=== PATIENT | male | born 1960 | race African-American/Black ===

== ENCOUNTER 2019-08-10 12:29 | Inpatient (IN) | payer MEDICAID ==
[~2019-08-10] VITALS: Ht 165.1 cm; Wt 67.1 kg
[2019-08-10 14:38] LABS: EOSINOPHILS % 6.1 % (0.0-5.0); HEMOGLOBIN. 12.6 g/dL (14.0-18.0); LYMPHOCYTES % 26.3 % (20.0-50.0); MEAN CORPUSCULAR HEMOGLOBIN 31.4 pg (28.0-32.0); MEAN CORPUSCULAR VOLUME 94.7 fL (80.0-94.0); MEAN PLATELET VOLUME 8.1 fl (7.4-10.4); MONOCYTES % 5.2 % (2.0-8.0); NEUTROPHILS % 61.4 % (40.0-76.0); PLATELET 238 x1000/uL (130-400); RED BLOOD CELL COUNT 4.02 mill/uL (4.7-6.1); RED CELL DISTRIBUTION WIDTH 14.6 % (11.6-14.6)
[2019-08-10 14:46] LABS: CHLORIDE 102 mEq/L (98-107)
[2019-08-10] MEDS ORDERED: ONDANSETRON HCL 4MG/2ML INJ IV PRN (18:45)
[2019-08-10] MEDS ORDERED: MORPHINE SULFATE 2 MG/ML CPJ (NOT FOR IM USE) IV PRN (18:45)
[2019-08-10] MEDS ORDERED: GUAIFENESIN 200MG/10ML SUGAR FREE UDC PO PRN (18:45)
[2019-08-10] MEDS ORDERED: DOCUSATE SODIUM 100MG CAPSULE PO PRN (18:45)
[2019-08-10] MEDS ORDERED: IPRATROPIUM/ALBUTEROL 0.5-3(2.5)MG/3ML NEB HHN PRN (18:45)
[2019-08-10] MEDS ORDERED: MAGNESIUM/ALUMINUM HYDROXIDE/SIMETHICONE 30ML UDC PO PRN (18:45)
[2019-08-10] MEDS ORDERED: CLONIDINE 0.1MG TABLET PO PRN (18:45)
[2019-08-10] MEDS ORDERED: LORAZEPAM 2MG/ML CPJ IV PRN (18:45)
[2019-08-10] MEDS ORDERED: ACETAMINOPHEN 325MG TABLET PO PRN (18:45)
[2019-08-10] MEDS ORDERED: HYDROCODONE/ACETAMINOPHEN 10/325MG TABLET PO PRN (18:45)
[2019-08-10] MEDS ORDERED: HYDRALAZINE 20MG/ML VIAL IV PRN (18:45)
[2019-08-10] MEDS ORDERED: DIPHENHYDRAMINE 50MG/ML VIAL IV PRN (18:45)
[2019-08-10 22:46] VITALS: BP 144/100
[2019-08-10 22:51] VITALS: BP 144/100
[2019-08-10] MEDS ORDERED: ISOS30TA6 PO (23:15)
[2019-08-10] MEDS ORDERED: CARV12.545 PO (23:15)
[2019-08-10] MEDS ORDERED: SEVE2.4P3 PO (23:15)
[2019-08-10] MEDS ORDERED: LISI2.5T47 PO (23:15)
[2019-08-10] MEDS ORDERED: HYDR-4133 PO (23:15)
[2019-08-11 00:02] LABS: CREATINE KINASE 46 IU/L (39-308)
[2019-08-11 00:04] LABS: CREATINE KINASE MB FRACTION < 1.0 ng/mL (0.5-3.6)
[2019-08-11 04:00] VITALS: BP 138/87
[2019-08-11] MEDS ORDERED: SODIUM CHLORIDE 0.9% INJ 3ML FLUSH IVF SCH (06:00)
[2019-08-11 07:28] LABS: BASOPHILS % 0.9 % (0.0-2.0); EOSINOPHILS % 6.6 % (0.0-5.0); HEMATOCRIT. 33.7 % (42.0-52.0); HEMOGLOBIN. 11.2 g/dL (14.0-18.0); LYMPHOCYTES % 25.2 % (20.0-50.0); MEAN CORPUSCULAR HEMOGLOBIN 31.6 pg (28.0-32.0); MEAN CORPUSCULAR VOLUME 94.5 fL (80.0-94.0); MONOCYTES % 7.9 % (2.0-8.0); NEUTROPHILS % 59.4 % (40.0-76.0); PLATELET 212 x1000/uL (130-400); RED BLOOD CELL COUNT 3.56 mill/uL (4.7-6.1); RED CELL DISTRIBUTION WIDTH 14.7 % (11.6-14.6)
[2019-08-11 07:42] LABS: CHLORIDE 102 mEq/L (98-107)
[2019-08-11 07:55] LABS: CREATINE KINASE 49 IU/L (39-308)
[2019-08-11 07:58] LABS: CREATINE KINASE MB FRACTION < 1.0 ng/mL (0.5-3.6)
[2019-08-11 08:00] VITALS: BP 152/119
[2019-08-11] MEDS ORDERED: ENOXAPARIN 30MG/0.3ML SYR SUBCUT SCH (09:00)
== END 2019-08-11 10:26 | disposition left against medical advice (07) | DRG 470 ==
LOC: ER 12:50 → 7WST 18:09 → EDBEDREQ 18:25 → EDBEDREQTM 18:25 → EDBEDREQSVC 20:59 → EDBEDREQTM 20:59 → ENRESERV 21:36
PROVIDERS: ADMIT Internal Medicine; ATTEND Internal Medicine
DX: I13.11 Hypertensive heart and chronic kidney disease without heart failure, with stage 5 chronic kidney disease, or end stage renal disease (principal); E87.70 Fluid overload, unspecified; N18.6 End stage renal disease; I51.7 Cardiomegaly; Z91.19 Patient's noncompliance with other medical treatment and regimen; Z99.2 Dependence on renal dialysis; F17.210 Nicotine dependence, cigarettes, uncomplicated
CPT/HCPCS: 36415; 71045; 80053; 82550; 82553; 83880; 84484; 85025; 93005; 93970; 99285; J1650

== ENCOUNTER 2019-11-30 19:33 | Inpatient (IN) | payer MEDICAID ==
[~2019-11-30] VITALS: Ht 175.3 cm; Wt 55.8 kg
[~2019-11-30 19:33] MED LIST: SEVE800T8 PO; TOPUD PO
[2019-11-30] MEDS ORDERED: ONDANSETRON HCL 4MG/2ML INJ IV ONE (21:30)
[2019-11-30 23:09] LABS: BASOPHILS % 1.8 % (0.0-2.0); HEMATOCRIT. 23.8 % (42.0-52.0); HEMOGLOBIN. 7.9 g/dL (14.0-18.0); LYMPHOCYTES % 12.3 % (20.0-50.0); MEAN CORPUSCULAR HEMOGLOBIN 29.1 pg (28.0-32.0); MEAN CORPUSCULAR VOLUME 87.7 fL (80.0-94.0); MEAN PLATELET VOLUME 7.7 fl (7.4-10.4); MONOCYTES % 11.7 % (2.0-8.0); NEUTROPHILS % 65.2 % (40.0-76.0); PLATELET 375 x1000/uL (130-400); RED BLOOD CELL COUNT 2.71 mill/uL (4.7-6.1); RED CELL DISTRIBUTION WIDTH 16.2 % (11.6-14.6)
[2019-11-30 23:15] LABS: CHLORIDE 102 mEq/L (98-107)
[2019-11-30 23:20] LABS: ETHANOL BLOOD < 10 mg/dL
[2019-11-30] MEDS ORDERED: CALCIUM CHLORIDE 1GM/10ML SYR IV ONE (23:30)
[2019-11-30] MEDS ORDERED: DEXTROSE 50% WATER 50ML SYRINGE IV ONE (23:30)
[2019-11-30] MEDS ORDERED: INSULIN REGULAR (HUMULIN R) 300UNITS/3ML IV ONE (23:30)
[2019-11-30] MEDS ORDERED: SODIUM POLYSTYRENE SULFONATE 15 G/60 ML BOT PO ONE (23:30)
[2019-11-30] MEDS ORDERED: ALBUTEROL (0.083%) 2.5MG/3ML NEB HHN ONE (23:30)
[2019-11-30] MEDS ORDERED: FUROSEMIDE 100MG/10ML VIAL IV STA (23:30)
[2019-12-01 01:35] LABS: CHLORIDE 105 mEq/L (98-107)
[2019-12-01] MEDS ORDERED: DEXTROSE 50% WATER 50ML SYRINGE IV ONE (02:30)
[2019-12-01 04:39] VITALS: BP 144/92
[2019-12-01 04:44] VITALS: BP 144/92
[2019-12-01 04:59] VITALS: BP 128/92
[2019-12-01] MEDS ORDERED: ONDANSETRON HCL 4MG/2ML INJ IV PRN (08:30)
[2019-12-01] MEDS ORDERED: CLONIDINE 0.1MG TABLET PO PRN (08:30)
[2019-12-01] MEDS ORDERED: DIPHENHYDRAMINE 50MG/ML VIAL IV PRN (08:30)
[2019-12-01 12:00] VITALS: BP 135/79
[2019-12-01] MEDS ORDERED: DEXTROSE 50% WATER 50ML SYRINGE IV PRN (12:15)
[2019-12-01] MEDS: BLOOD SUGAR DIAGNOSTIC STRIP TEST SCH ×3 (12:38→21:53)
[2019-12-01] MEDS: INSULIN LISPRO 100 UNITS/ML SUBCUT SCH ×3 (12:39→21:00)
[2019-12-01 16:00] VITALS: BP 130/89
[2019-12-01] MEDS: ACETAMINOPHEN 325MG TABLET PO PRN (16:57)
[2019-12-01 20:00] VITALS: BP 135/71
[2019-12-01] MEDS ORDERED: EPOETIN ALFA 10000UNITS/ML VIAL SUBCUT SCH (21:00)
[2019-12-02] VITALS: BP 138/85
[2019-12-02] MEDS: MORPHINE SULFATE 2 MG/ML CPJ (NOT FOR IM USE) IV PRN ×2 (03:22→09:30)
[2019-12-02] MEDS: ACETAMINOPHEN 325MG TABLET PO PRN (05:06)
[2019-12-02 08:00] VITALS: BP 189/104
[2019-12-02] MEDS: INSULIN LISPRO 100 UNITS/ML SUBCUT SCH ×4 (08:10→21:00)
[2019-12-02] MEDS: BLOOD SUGAR DIAGNOSTIC STRIP TEST SCH ×4 (08:13→22:58)
[2019-12-02 12:00] VITALS: BP 119/76
[2019-12-02 12:07] LABS: BASOPHILS % 0.8 % (0.0-2.0); EOSINOPHILS % 7.8 % (0.0-5.0); HEMATOCRIT. 24.5 % (42.0-52.0); HEMOGLOBIN. 8.2 g/dL (14.0-18.0); LYMPHOCYTES % 9.4 % (20.0-50.0); MEAN CORPUSCULAR HEMOGLOBIN 28.6 pg (28.0-32.0); MEAN CORPUSCULAR VOLUME 85.7 fL (80.0-94.0); MEAN PLATELET VOLUME 7.2 fl (7.4-10.4); MONOCYTES % 8.9 % (2.0-8.0); NEUTROPHILS % 73.1 % (40.0-76.0); PLATELET 379 x1000/uL (130-400); RED BLOOD CELL COUNT 2.86 mill/uL (4.7-6.1); RED CELL DISTRIBUTION WIDTH 15.5 % (11.6-14.6)
[2019-12-02 12:45] LABS: CHLORIDE 103 mEq/L (98-107)
[2019-12-02 12:59] LABS: LDL CHOLESTEROL 86 mg/dL (5-100)
[2019-12-02 13:01] LABS: HDL CHOLESTEROL 23 mg/dL (40-59)
[2019-12-02 16:00] VITALS: BP 122/76
[2019-12-02 20:00] VITALS: BP 112/81
[2019-12-03] VITALS: BP 122/73
[2019-12-03 04:00] VITALS: BP 116/79
[2019-12-03] MEDS: BLOOD SUGAR DIAGNOSTIC STRIP TEST SCH ×4 (05:19→21:15)
[2019-12-03] MEDS: INSULIN LISPRO 100 UNITS/ML SUBCUT SCH ×4 (05:19→21:00)
[2019-12-03 06:57] LABS: BASOPHILS % 1.4 % (0.0-2.0); EOSINOPHILS % 9.1 % (0.0-5.0); HEMATOCRIT. 24.3 % (42.0-52.0); HEMOGLOBIN. 8.1 g/dL (14.0-18.0); MEAN CORPUSCULAR HEMOGLOBIN 28.9 pg (28.0-32.0); MEAN CORPUSCULAR VOLUME 86.3 fL (80.0-94.0); MEAN PLATELET VOLUME 7.6 fl (7.4-10.4); MONOCYTES % 11.9 % (2.0-8.0); NEUTROPHILS % 61.6 % (40.0-76.0); PLATELET 393 x1000/uL (130-400); RED BLOOD CELL COUNT 2.81 mill/uL (4.7-6.1); RED CELL DISTRIBUTION WIDTH 15.8 % (11.6-14.6)
[2019-12-03 08:00] VITALS: BP 121/74
[2019-12-03 12:00] VITALS: BP 110/80
[2019-12-03 16:00] VITALS: BP 100/70
[2019-12-03] MEDS ORDERED: EPOETIN ALFA 10000UNITS/ML VIAL SUBCUT NR (18:00)
[2019-12-03 20:00] VITALS: BP 112/78
[2019-12-04] VITALS: BP 104/78
[2019-12-04] MEDS: MORPHINE SULFATE 2 MG/ML CPJ (NOT FOR IM USE) IV PRN (03:50)
[2019-12-04 04:00] VITALS: BP 115/72
[2019-12-04 08:02] VITALS: BP 116/85
[2019-12-04] MEDS: ACETAMINOPHEN 325MG TABLET PO PRN (10:49)
[2019-12-04 11:46] VITALS: BP 116/85
== END 2019-12-04 12:45 | disposition home or self-care (01) | DRG 425 ==
LOC: ER 19:33 → MICUSO 22:38 → 7WST 12-01 02:05 → 8WST 12-02 23:13
PROVIDERS: ADMIT Internal Medicine; ATTEND Internal Medicine
PROC: 5A1D70Z Performance of Urinary Filtration, Intermittent, Less than 6 Hours Per Day (ICD-10-PCS; principal; 2019-12-01)
PROC: 5A1D70Z Performance of Urinary Filtration, Intermittent, Less than 6 Hours Per Day (ICD-10-PCS; 2019-12-02)
DX: E87.5 Hyperkalemia (principal); I12.0 Hypertensive chronic kidney disease with stage 5 chronic kidney disease or end stage renal disease; N18.6 End stage renal disease; M31.6 Other giant cell arteritis; D63.1 Anemia in chronic kidney disease; Z20.828 Contact with and (suspected) exposure to other viral communicable diseases; E46 Unspecified protein-calorie malnutrition; Z68.1 Body mass index [BMI] 19.9 or less, adult; Z99.2 Dependence on renal dialysis; E43 Unspecified severe protein-calorie malnutrition; D72.810 Lymphocytopenia; Z91.15 Patient's noncompliance with renal dialysis
CPT/HCPCS: 36415; 71045; 80048; 80053; 80061; 80320; 82962; 83735; 84100; 84439; 84443; 84481; 85025; 87635; 93005; 96374; 99291; J0885; J1200; J1815; J1940; J2270; J2405; J3490; G0480

== ENCOUNTER 2019-12-12 18:14 | Inpatient (IN) | payer MEDICAID ==
[~2019-12-12] VITALS: Ht 167.6 cm; Wt 64.9 kg
[2019-12-12] MEDS ORDERED: CEFTRIAXONE 1 G PREMIX 50 ML IV ONE (19:30)
[2019-12-12 20:34] LABS: BASOPHILS % 1.2 % (0.0-2.0); EOSINOPHILS % 3.9 % (0.0-5.0); HEMATOCRIT. 27.1 % (42.0-52.0); HEMOGLOBIN. 8.7 g/dL (14.0-18.0); MEAN CORPUSCULAR HEMOGLOBIN 28.2 pg (28.0-32.0); MEAN CORPUSCULAR VOLUME 88.2 fL (80.0-94.0); MEAN PLATELET VOLUME 7.2 fl (7.4-10.4); MONOCYTES % 7.6 % (2.0-8.0); NEUTROPHILS % 75.3 % (40.0-76.0); PLATELET 446 x1000/uL (130-400); RED BLOOD CELL COUNT 3.07 mill/uL (4.7-6.1); RED CELL DISTRIBUTION WIDTH 15.3 % (11.6-14.6)
[2019-12-12 20:39] LABS: CHLORIDE 101 mEq/L (98-107)
[2019-12-12 20:42] LABS: INR 1.3
[2019-12-12] MEDS ORDERED: DEXTROSE 50% WATER 50ML SYRINGE IV ONE (20:45)
[2019-12-12] MEDS ORDERED: SODIUM BICARBONATE 8.4% 1 MEQ/ML 50ML SYR IV NR (21:00)
[2019-12-12] MEDS ORDERED: INSULIN REGULAR (HUMULIN R) 300UNITS/3ML IV NR (21:00)
[2019-12-12] MEDS ORDERED: DEXTROSE 50% WATER 50ML SYRINGE IV NR (21:00)
[2019-12-12] MEDS ORDERED: ALBUTEROL (0.083%) 2.5MG/3ML NEB HHN NR (21:00)
[2019-12-12 21:08] LABS: CLARITY URINE TURBID (CLEAR); COLOR URINE YELLOW (YELLOW); KETONES URINE NEGATIVE (NEGATIVE); LEUKOCYTE ESTERASE URINE 3+ (NEGATIVE); NITRITE URINE NEGATIVE (NEGATIVE); OCCULT BLOOD URINE 3+ (NEGATIVE); PROTEIN URINE 3+ (NEGATIVE); SPECIFIC GRAVITY URINE 1.009 (1.005-1.030); UROBILINOGEN URINE 0.2 E.U./dL (0.2-1.0)
[2019-12-13 01:00] VITALS: BP 111/73
[2019-12-13] MEDS ORDERED: MORPHINE SULFATE 2 MG/ML CPJ (NOT FOR IM USE) IV PRN (06:15)
[2019-12-13 07:27] LABS: BASOPHILS % 0.7 % (0.0-2.0); EOSINOPHILS % 2.3 % (0.0-5.0); HEMATOCRIT. 25.8 % (42.0-52.0); HEMOGLOBIN. 8.4 g/dL (14.0-18.0); LYMPHOCYTES % 7.8 % (20.0-50.0); MEAN CORPUSCULAR HEMOGLOBIN 28.2 pg (28.0-32.0); MEAN CORPUSCULAR VOLUME 86.9 fL (80.0-94.0); MEAN PLATELET VOLUME 7.6 fl (7.4-10.4); MONOCYTES % 7.5 % (2.0-8.0); NEUTROPHILS % 81.7 % (40.0-76.0); PLATELET 457 x1000/uL (130-400); RED BLOOD CELL COUNT 2.97 mill/uL (4.7-6.1)
[2019-12-13] MEDS ORDERED: SEVELAMER CARBONATE 800 MG TABLET PO SCH (07:40)
[2019-12-13 07:50] VITALS: BP 93/55
[2019-12-13] MEDS: PIPERACILLIN/TAZOBACTAM 2.25 G in DEXTROSE 5% WATER 50 ML IV SCH ×2 (08:48→22:06)
[2019-12-13] MEDS: FOLIC ACID/VITAMIN B COMP W-C TABLET PO SCH (08:48)
[2019-12-13] MEDS: FAMOTIDINE 20MG TABLET PO SCH (08:48)
[2019-12-13 11:56] VITALS: BP 100/60
[2019-12-13] MEDS ORDERED: ALBUMIN HUMAN 25GM/100ML (25%) IV NR (12:00)
[2019-12-13] MEDS ORDERED: SODIUM BICARBONATE 50 MEQ in DEXTROSE 5% WATER 1,000 ML IV SCH (12:00)
[2019-12-13 12:04] LABS: PHOSPHORUS 15.4 mg/dL (2.5-4.9)
[2019-12-13] MEDS: SEVELAMER CARBONATE 800 MG TABLET PO SCH ×2 (12:18→17:57)
[2019-12-13] MEDS: RISPERIDONE 0.5MG TABLET PO SCH ×2 (12:19→17:57)
[2019-12-13] MEDS: SODIUM BICARBONATE 50 MEQ in DEXT 5%/0.45% NACL 1000ML 1,000 ML IV SCH (15:05)
[2019-12-13] MEDS ORDERED: DEXTROSE 50% WATER 50ML SYRINGE IV PRN (17:15)
[2019-12-13 19:00] VITALS: BP 107/65
[2019-12-13] MEDS: HYDROCODONE/ACETAMINOPHEN 10/325MG TABLET PO PRN (19:08)
[2019-12-13 20:00] VITALS: BP 124/82
[2019-12-13] MEDS: BLOOD SUGAR DIAGNOSTIC STRIP TEST SCH ×2 (20:29→23:53)
[2019-12-13] MEDS ORDERED: MIDODRINE HCL 5MG TABLET PO SCH (21:00)
[2019-12-13] MEDS ORDERED: EPOETIN ALFA 10000UNITS/ML VIAL SUBCUT SCH (21:00)
[2019-12-13] MEDS ORDERED: ALTEPLASE 2MG/VIAL ITC NR ×2 (21:30)
[2019-12-13 23:50] VITALS: BP 115/78
[2019-12-14 04:00] VITALS: BP 117/74
[2019-12-14] MEDS: BLOOD SUGAR DIAGNOSTIC STRIP TEST SCH ×5 (04:11→19:57)
[2019-12-14] MEDS: HYDROCODONE/ACETAMINOPHEN 10/325MG TABLET PO PRN (04:30)
[2019-12-14] MEDS ORDERED: ALBUMIN HUMAN 25GM/100ML (25%) IV ONE (05:00)
[2019-12-14 07:46] LABS: HEMOGLOBIN. 7.2 g/dL (14.0-18.0); MEAN CORPUSCULAR HEMOGLOBIN 28.3 pg (28.0-32.0); MEAN CORPUSCULAR VOLUME 86.4 fL (80.0-94.0); MEAN PLATELET VOLUME 7.4 fl (7.4-10.4); PLATELET 348 x1000/uL (130-400); RED BLOOD CELL COUNT 2.54 mill/uL (4.7-6.1); RED CELL DISTRIBUTION WIDTH 15.2 % (11.6-14.6)
[2019-12-14 08:00] VITALS: BP 115/68
[2019-12-14] MEDS: FAMOTIDINE 20MG TABLET PO SCH (08:46)
[2019-12-14] MEDS: RISPERIDONE 0.5MG TABLET PO SCH ×2 (08:46→18:02)
[2019-12-14] MEDS: SEVELAMER CARBONATE 800 MG TABLET PO SCH ×3 (08:46→18:03)
[2019-12-14] MEDS: FOLIC ACID/VITAMIN B COMP W-C TABLET PO SCH (08:46)
[2019-12-14] MEDS: PIPERACILLIN/TAZOBACTAM 2.25 G in DEXTROSE 5% WATER 50 ML IV SCH ×2 (10:00→20:33)
[2019-12-14 12:00] VITALS: BP 124/74
[2019-12-14] MEDS ORDERED: HEPARIN 5000 UNITS/ML VIAL IV SCH (13:15)
[2019-12-14] MEDS: SODIUM BICARBONATE 50 MEQ in DEXT 5%/0.45% NACL 1000ML 1,000 ML IV SCH (15:15)
[2019-12-14 16:00] VITALS: BP 108/80
[2019-12-14] MEDS: FERROUS SULFATE 325MG TABLET PO SCH (18:02)
[2019-12-14 20:00] VITALS: BP 92/57
[2019-12-14 21:36] LABS: PLATELET ESTIMATE NORMAL
[2019-12-15] VITALS (11 sets, daily range): BP systolic 71–106; BP diastolic 8–63
[2019-12-15] MEDS: BLOOD SUGAR DIAGNOSTIC STRIP TEST SCH ×5 (04:00→15:25)
[2019-12-15 07:56] LABS: HEMATOCRIT. 22.2 % (42.0-52.0); HEMOGLOBIN. 7.3 g/dL (14.0-18.0); MEAN CORPUSCULAR HEMOGLOBIN 28.3 pg (28.0-32.0); MEAN CORPUSCULAR VOLUME 86.1 fL (80.0-94.0); MEAN PLATELET VOLUME 7.7 fl (7.4-10.4); PLATELET 299 x1000/uL (130-400); RED BLOOD CELL COUNT 2.58 mill/uL (4.7-6.1); RED CELL DISTRIBUTION WIDTH 15.3 % (11.6-14.6)
[2019-12-15] MEDS: RISPERIDONE 0.5MG TABLET PO SCH ×2 (08:22→17:00)
[2019-12-15] MEDS: FOLIC ACID/VITAMIN B COMP W-C TABLET PO SCH (08:23)
[2019-12-15] MEDS: FERROUS SULFATE 325MG TABLET PO SCH ×2 (08:23→17:17)
[2019-12-15] MEDS: FAMOTIDINE 20MG TABLET PO SCH (08:23)
[2019-12-15] MEDS: SEVELAMER CARBONATE 800 MG TABLET PO SCH ×3 (08:24→17:17)
[2019-12-15] MEDS: PIPERACILLIN/TAZOBACTAM 2.25 G in DEXTROSE 5% WATER 50 ML IV SCH (08:24)
[2019-12-15] MEDS ORDERED: ALLOPURINOL 100 MG TABLET PO SCH (09:00)
[2019-12-15] MEDS ORDERED: ALBUMIN HUMAN 25GM/100ML (25%) IV SCH (15:00)
[2019-12-15 17:55] LABS: PLATELET ESTIMATE NORMAL
[2019-12-15] MEDS ORDERED: EPOETIN ALFA 4000UNITS/ML VIAL SUBCUT SCH (21:00)
== END 2019-12-15 18:00 | disposition home or self-care (01) | DRG 424 ==
LOC: ER 18:14 → 8WST 22:59 → EDBEDREQ 23:14 → ENRESERV 23:44
PROVIDERS: ADMIT Internal Medicine; ATTEND Internal Medicine
PROC: 5A1D70Z Performance of Urinary Filtration, Intermittent, Less than 6 Hours Per Day (ICD-10-PCS; 2019-12-13)
PROC: 3E03317 Introduction of Other Thrombolytic into Peripheral Vein, Percutaneous Approach (ICD-10-PCS; 2019-12-13)
PROC: 5A1D70Z Performance of Urinary Filtration, Intermittent, Less than 6 Hours Per Day (ICD-10-PCS; principal; 2019-12-14)
PROC: 5A1D70Z Performance of Urinary Filtration, Intermittent, Less than 6 Hours Per Day (ICD-10-PCS; 2019-12-15)
PROC: 30233N1 Transfusion of Nonautologous Red Blood Cells into Peripheral Vein, Percutaneous Approach (ICD-10-PCS; 2019-12-15)
DX: E16.2 Hypoglycemia, unspecified (principal); E87.5 Hyperkalemia; E43 Unspecified severe protein-calorie malnutrition; N18.6 End stage renal disease; I12.0 Hypertensive chronic kidney disease with stage 5 chronic kidney disease or end stage renal disease; D63.1 Anemia in chronic kidney disease; E79.0 Hyperuricemia without signs of inflammatory arthritis and tophaceous disease; I95.9 Hypotension, unspecified; E83.39 Other disorders of phosphorus metabolism; R18.8 Other ascites; N39.0 Urinary tract infection, site not specified; N25.81 Secondary hyperparathyroidism of renal origin; K74.60 Unspecified cirrhosis of liver; E87.2 Acidosis; F17.210 Nicotine dependence, cigarettes, uncomplicated; F20.9 Schizophrenia, unspecified; L03.211 Cellulitis of face; Z91.15 Patient's noncompliance with renal dialysis; Z68.23 Body mass index [BMI] 23.0-23.9, adult; Z71.6 Tobacco abuse counseling; Z99.2 Dependence on renal dialysis
CPT/HCPCS: 36415; 70486; 71045; 80048; 80053; 81003; 82962; 83036; 83540; 83550; 83735; 83970; 84100; 84484; 84550; 85025; 86850; 86900; 86920; 93005; 94640; 99291; J0696; J0885; J1644; J1815; J2543; J2997; J3490; J7060; J7070; P9016; P9047

== ENCOUNTER 2019-12-19 14:28 | Inpatient (IN) | payer MEDICAID ==
[~2019-12-19] VITALS: Ht 167.6 cm; Wt 46.0 kg
[2019-12-19] MEDS ORDERED: MORPHINE SULFATE 4 MG/ML CPJ (NOT FOR IM USE) IV ONE (15:00)
[2019-12-19 15:30] LABS: BASOPHILS % 1.1 % (0.0-2.0); EOSINOPHILS % 7.1 % (0.0-5.0); HEMATOCRIT. 30.4 % (42.0-52.0); HEMOGLOBIN. 9.8 g/dL (14.0-18.0); LYMPHOCYTES % 8.8 % (20.0-50.0); MEAN CORPUSCULAR HEMOGLOBIN 28.6 pg (28.0-32.0); MEAN CORPUSCULAR VOLUME 88.1 fL (80.0-94.0); MEAN PLATELET VOLUME 7.4 fl (7.4-10.4); MONOCYTES % 6.7 % (2.0-8.0); NEUTROPHILS % 76.3 % (40.0-76.0); PLATELET 432 x1000/uL (130-400); RED BLOOD CELL COUNT 3.45 mill/uL (4.7-6.1); RED CELL DISTRIBUTION WIDTH 14.8 % (11.6-14.6)
[2019-12-19 15:35] LABS: CHLORIDE 105 mEq/L (98-107)
[2019-12-19 15:39] LABS: BG BASE EXCESS -7.1 mmol/L (-2.0-2.0); BG CARBOXYHEMOGLOBIN 2.7 % (0.5-1.5); BG DEOXYHEMOGLOBIN 2.2 % (0.0-5.0); BG FRACTION INSPIRED OXYGEN 40; BG HCO3 ACT 17.5 mmol/L (22.0-26.0); BG METHEMOGLOBIN 0.3 % (0.0-1.5); BG OXYGEN SATURATION 97.7 % (92.0-98.5); BG OXYHEMOGLOBIN 94.8 % (94.0-97.0); BG PCO2 31.6 mmHg (35.0-45.0); BG PO2 107.8 mmHg (75.0-100.0); BG SAMPLE SITE LEFT RADIAL; BG TOTAL HEMOGLOBIN 10.3 g/dL (12.0-18.0); BG VENT MODE NASAL CANNULA
[2019-12-19] MEDS ORDERED: ONDANSETRON HCL 4MG/2ML INJ IV NR (21:54)
[2019-12-19] MEDS ORDERED: MORPHINE SULFATE 2 MG/ML CPJ (NOT FOR IM USE) IV NR (21:54)
[2019-12-19 22:00] VITALS: BP 90/63
[2019-12-19] MEDS: ONDANSETRON HCL 4MG/2ML INJ IV PRN (22:59)
[2019-12-19 23:49] VITALS: BP 90/63
[2019-12-20] VITALS (12 sets, daily range): BP systolic 74–113; BP diastolic 34–71
[2019-12-20] MEDS ORDERED: MORPHINE SULFATE 2 MG/ML CPJ (NOT FOR IM USE) IV PRN (02:00)
[2019-12-20] MEDS: ONDANSETRON HCL 4MG/2ML INJ IV PRN (05:06)
[2019-12-20 06:32] LABS: HEMATOCRIT. 29.5 % (42.0-52.0); HEMOGLOBIN. 9.3 g/dL (14.0-18.0); MEAN CORPUSCULAR HEMOGLOBIN 27.8 pg (28.0-32.0); MEAN CORPUSCULAR VOLUME 87.8 fL (80.0-94.0); MEAN PLATELET VOLUME 7.6 fl (7.4-10.4); PLATELET 469 x1000/uL (130-400); RED BLOOD CELL COUNT 3.36 mill/uL (4.7-6.1); RED CELL DISTRIBUTION WIDTH 15.1 % (11.6-14.6)
[2019-12-20] MEDS: OMEPRAZOLE 20MG CAPSULE EXTENDED RELEASE PO SCH (06:37)
[2019-12-20] MEDS: SEVELAMER CARBONATE 800 MG TABLET PO SCH ×3 (07:50→17:03)
[2019-12-20] MEDS ORDERED: ALBUMIN HUMAN 12.5G/250ML (5%) IV SCH (08:00)
[2019-12-20] MEDS ORDERED: CEFTRIAXONE 1,000 MG in DEXTROSE 5% WATER 50 ML IV SCH (14:00)
[2019-12-20] MEDS ORDERED: IPRATROPIUM/ALBUTEROL 0.5-3(2.5)MG/3ML NEB HHN PRN (14:30)
[2019-12-20] MEDS ORDERED: TRAMADOL 50MG TABLET PO PRN (14:30)
[2019-12-20] MEDS ORDERED: HYDROCODONE/ACETAMINOPHEN 5/325MG TABLET PO PRN (14:30)
[2019-12-20] MEDS: AZITHROMYCIN 500 MG TABLET PO SCH (15:05)
[2019-12-20] MEDS: MIDODRINE HCL 5MG TABLET PO SCH ×2 (15:05→16:59)
[2019-12-20 15:39] LABS: PLATELET ESTIMATE INCREASED
[2019-12-20 16:40] LABS: INR 1.4; PROTHROMBIN TIME 14.7 sec (9.6-11.0)
[2019-12-20 17:17] LABS: HEPATITIS B SURFACE ANTIGEN NEGATIVE
[2019-12-20 17:46] LABS: HEPATITIS A AB IGM NEGATIVE (NEGATIVE)
[2019-12-20] MEDS ORDERED: LORAZEPAM 2MG/ML CPJ IV PRN (23:15)
[2019-12-21] VITALS (90 sets, daily range): BP systolic 61–127; BP diastolic 35–80
[2019-12-21] MEDS ORDERED: ALBUMIN HUMAN 25GM/100ML (25%) IV NR (01:00)
[2019-12-21 05:44] LABS: HEMATOCRIT. 24.3 % (42.0-52.0); HEMOGLOBIN. 7.8 g/dL (14.0-18.0); MEAN CORPUSCULAR VOLUME 87.6 fL (80.0-94.0); MEAN PLATELET VOLUME 7.8 fl (7.4-10.4); PLATELET 422 x1000/uL (130-400); RED BLOOD CELL COUNT 2.78 mill/uL (4.7-6.1); RED CELL DISTRIBUTION WIDTH 14.7 % (11.6-14.6)
[2019-12-21] MEDS ORDERED: ALBUMIN HUMAN 25GM/100ML (25%) IV PRN (06:45)
[2019-12-21] MEDS: MIDODRINE HCL 5MG TABLET PO SCH ×3 (08:16→18:26)
[2019-12-21] MEDS: FOLIC ACID/VITAMIN B COMP W-C TABLET PO SCH (08:17)
[2019-12-21] MEDS: SEVELAMER CARBONATE 800 MG TABLET PO SCH ×3 (08:17→18:26)
[2019-12-21] MEDS: AZITHROMYCIN 500 MG TABLET PO SCH (08:17)
[2019-12-21] MEDS: OMEPRAZOLE 20MG CAPSULE EXTENDED RELEASE PO SCH (08:17)
[2019-12-21] MEDS: PANTOPRAZOLE 40MG DR TABLET PO SCH ×2 (09:30→21:13)
[2019-12-21] MEDS: NOREPINEPHRINE 32 MG in DEXT 5% WATER 468 ML IV PRN (09:43)
[2019-12-21 09:55] LABS: TOTAL IRON BINDING CAPACITY 275 ug/dL (250-450)
[2019-12-21] MEDS ORDERED: PHENYLEPHRINE 10 MG in DEXT 5% WATER 249 ML IV PRN (10:15)
[2019-12-21] MEDS ORDERED: PHYTONADIONE 10MG/ML AMP SUBCUT NR (11:00)
[2019-12-21] MEDS: SODIUM CHLORIDE 0.9% 1,000 ML IV SCH (11:32)
[2019-12-21] MEDS: IRON SUCROSE COMPLEX 100 MG/5 ML ML IV SCH (11:32)
[2019-12-21] MEDS ORDERED: LIDOCAINE HCL 1% 20ML VIAL (Pyxis) INJ ONE (12:50)
[2019-12-21] MEDS ORDERED: SODIUM BICARBONATE 4% (2.4MEQ) 5ML VIAL IV ONE (12:51)
[2019-12-21] MEDS ORDERED: SIMETHICONE/SOD BICARB/CIT AC 1 EACH GRAN.EF.PK ONE (12:51)
[2019-12-21 12:58] LABS: INR 1.4; PROTHROMBIN TIME 14.4 sec (9.6-11.0)
[2019-12-21 13:28] LABS: PLATELET ESTIMATE SLIGHTLY INCREASED
[2019-12-21] MEDS ORDERED: VANCOMYCIN 1 G PREMIX 200 ML IV SCH (16:00)
[2019-12-21] MEDS: CEFEPIME 1,000 MG in DEXTROSE 5% WATER 50 ML IV SCH (16:11)
[2019-12-21] MEDS: ONDANSETRON HCL 4MG/2ML INJ IV PRN (18:36)
[2019-12-21] MEDS ORDERED: EPOETIN ALFA 4000UNITS/ML VIAL SUBCUT SCH (21:00)
[2019-12-21] MEDS ORDERED: EPOETIN ALFA 10000UNITS/ML VIAL SUBCUT SCH (21:00)
[2019-12-21] MEDS: METOCLOPRAMIDE HCL 10MG/2ML VIAL IV SCH (21:13)
[2019-12-22] VITALS (51 sets, daily range): BP systolic 60–148; BP diastolic 30–82
[2019-12-22] MEDS ORDERED: DIPHENHYDRAMINE 50MG/ML VIAL IV PRN (02:15)
[2019-12-22 03:14] LABS: BASOPHILS % 0.3 % (0.0-2.0); EOSINOPHILS % 2.1 % (0.0-5.0); HEMATOCRIT. 26.3 % (42.0-52.0); HEMOGLOBIN. 8.5 g/dL (14.0-18.0); LYMPHOCYTES % 7.7 % (20.0-50.0); MEAN CORPUSCULAR HEMOGLOBIN 28.2 pg (28.0-32.0); MEAN CORPUSCULAR VOLUME 86.9 fL (80.0-94.0); MEAN PLATELET VOLUME 7.7 fl (7.4-10.4); MONOCYTES % 5.2 % (2.0-8.0); NEUTROPHILS % 84.7 % (40.0-76.0); PLATELET 359 x1000/uL (130-400); RED BLOOD CELL COUNT 3.02 mill/uL (4.7-6.1); RED CELL DISTRIBUTION WIDTH 14.7 % (11.6-14.6)
[2019-12-22] MEDS: SODIUM CHLORIDE 0.9% 1,000 ML IV SCH (05:16)
[2019-12-22] MEDS ORDERED: DEXTROSE 50% WATER 50ML SYRINGE IV ONE (06:50)
[2019-12-22] MEDS: IRON SUCROSE COMPLEX 100 MG/5 ML ML IV SCH (09:30)
[2019-12-22] MEDS: ONDANSETRON HCL 4MG/2ML INJ IV PRN (09:30)
[2019-12-22] MEDS: PANTOPRAZOLE 40MG DR TABLET PO SCH ×2 (09:31→21:22)
[2019-12-22] MEDS: FOLIC ACID/VITAMIN B COMP W-C TABLET PO SCH (09:31)
[2019-12-22] MEDS: METOCLOPRAMIDE HCL 10MG/2ML VIAL IV SCH ×4 (09:31→21:21)
[2019-12-22] MEDS: SEVELAMER CARBONATE 800 MG TABLET PO SCH ×3 (09:32→17:46)
[2019-12-22] MEDS: MIDODRINE HCL 5MG TABLET PO SCH ×3 (09:33→16:57)
[2019-12-22] MEDS ORDERED: DEXT 5%/0.45% NACL 1000ML 1,000 ML IV SCH (10:30)
[2019-12-22] MEDS ORDERED: ALBUMIN HUMAN 25GM/100ML (25%) IV NR (11:15)
[2019-12-22] MEDS ORDERED: VANCOMYCIN 500 MG PREMIX 100 ML IV SCH (17:00)
[2019-12-22] MEDS: NOREPINEPHRINE 32 MG in DEXT 5% WATER 468 ML IV PRN ×2 (18:05→18:25)
[2019-12-22] MEDS: CEFEPIME 1,000 MG in DEXTROSE 5% WATER 50 ML IV SCH (21:23)
[2019-12-23] VITALS (47 sets, daily range): BP systolic 73–134; BP diastolic 41–83
[2019-12-23] MEDS: NOREPINEPHRINE 32 MG in DEXT 5% WATER 468 ML IV PRN (02:43)
[2019-12-23 05:19] LABS: BASOPHILS % 0.6 % (0.0-2.0); EOSINOPHILS % 10.6 % (0.0-5.0); HEMATOCRIT. 25.5 % (42.0-52.0); HEMOGLOBIN. 8.5 g/dL (14.0-18.0); LYMPHOCYTES % 11.6 % (20.0-50.0); MEAN CORPUSCULAR HEMOGLOBIN 28.9 pg (28.0-32.0); MEAN CORPUSCULAR VOLUME 86.5 fL (80.0-94.0); MEAN PLATELET VOLUME 7.7 fl (7.4-10.4); MONOCYTES % 8.4 % (2.0-8.0); NEUTROPHILS % 68.8 % (40.0-76.0); PLATELET 331 x1000/uL (130-400); RED BLOOD CELL COUNT 2.95 mill/uL (4.7-6.1); RED CELL DISTRIBUTION WIDTH 14.4 % (11.6-14.6)
[2019-12-23] MEDS: SEVELAMER CARBONATE 800 MG TABLET PO SCH ×2 (08:20→13:13)
[2019-12-23] MEDS: IRON SUCROSE COMPLEX 100 MG/5 ML ML IV SCH (09:43)
[2019-12-23] MEDS: MIDODRINE HCL 5MG TABLET PO SCH ×2 (09:44→13:00)
[2019-12-23] MEDS: FOLIC ACID/VITAMIN B COMP W-C TABLET PO SCH (09:44)
== END 2019-12-23 14:00 | disposition left against medical advice (07) | DRG 720 ==
LOC: ER 14:37 → 6WST 17:00 → ENRESERV 20:41 → 6WST 22:30 → CVICU 12-20 22:35
PROVIDERS: ADMIT Internal Medicine; ATTEND Internal Medicine
PROC: 0W9G3ZZ Drainage of Peritoneal Cavity, Percutaneous Approach (ICD-10-PCS; principal; 2019-12-21)
PROC: 30233N1 Transfusion of Nonautologous Red Blood Cells into Peripheral Vein, Percutaneous Approach (ICD-10-PCS; 2019-12-21)
PROC: 30233K1 Transfusion of Nonautologous Frozen Plasma into Peripheral Vein, Percutaneous Approach (ICD-10-PCS; 2019-12-21)
PROC: 5A1D70Z Performance of Urinary Filtration, Intermittent, Less than 6 Hours Per Day (ICD-10-PCS; 2019-12-21)
PROC: 5A1D70Z Performance of Urinary Filtration, Intermittent, Less than 6 Hours Per Day (ICD-10-PCS; 2019-12-22)
DX: A41.9 Sepsis, unspecified organism (principal); K74.60 Unspecified cirrhosis of liver; E43 Unspecified severe protein-calorie malnutrition; J18.9 Pneumonia, unspecified organism; R18.8 Other ascites; K80.20 Calculus of gallbladder without cholecystitis without obstruction; R65.21 Severe sepsis with septic shock; K65.9 Peritonitis, unspecified; I13.2 Hypertensive heart and chronic kidney disease with heart failure and with stage 5 chronic kidney disease, or end stage renal disease; Z53.29 Procedure and treatment not carried out because of patient's decision for other reasons; N18.6 End stage renal disease; E16.2 Hypoglycemia, unspecified; D63.1 Anemia in chronic kidney disease; E87.5 Hyperkalemia; I95.3 Hypotension of hemodialysis; Z99.2 Dependence on renal dialysis; E83.39 Other disorders of phosphorus metabolism; K92.0 Hematemesis; R74.8 Abnormal levels of other serum enzymes; I50.9 Heart failure, unspecified; F17.210 Nicotine dependence, cigarettes, uncomplicated; Z91.15 Patient's noncompliance with renal dialysis; Z68.1 Body mass index [BMI] 19.9 or less, adult; Z71.6 Tobacco abuse counseling
CPT/HCPCS: 36415; 36600; 49083; 71045; 74176; 76705; 80048; 80053; 80076; 80202; 82140; 82375; 82728; 82805; 82962; 83540; 83550; 83615; 83735; 83880; 84145; 84484; 85025; 86705; 86709; 86803; 86850; 86900; 86920; 86927; 87340; 93005; 99285; J0692; J0696; J0885; J1200; J2270; J2405; J2765; J3370; J3430; J3490; J7030; J7060; J7517; P9016; P9017; P9041; P9047